=== PATIENT | male | born 1950 | race African-American/Black ===

== ENCOUNTER 2022-11-15 20:03 | Emergency (ER) | payer MEDICARE, OTHER ==
[~2022-11-15] VITALS: Ht 170.2 cm; Wt 85.7 kg
--- NOTE | 2022-11-15 21:13 | NUR ---
LUCERO Estrada FROM [facility] C/O AGRESSIVE TOWARDS OTHER PATIENTS "MORE ALTERED THAN USUAL" , PT TO BED 11, DENIES SOB/CP. SITTER AT BS, NOT IN ACUTE DISTRESS. PENDING ER PROVIDER CLARE
--- NOTE | 2022-11-15 21:47 | NUR ---
URINE SENT TO LAB
--- NOTE | 2022-11-15 21:48 | NUR ---
COVID SWAB SENT TO LAB
[2022-11-15 22:06] LABS: BASOPHILS % (AUTO) 0.4 % (0.0-2.0); EOSINOPHILS % (AUTO) 2.2 % (0.0-6.0); HEMATOCRIT 43 % (39-51); HEMOGLOBIN 13.9 g/dL (13.5-17.5); LYMPHOCYTES # (AUTO) 1.6 K/uL (0.8-4.8); LYMPHOCYTES % (AUTO) 20.7 % (20.0-44.0); MEAN CORPUSCULAR HGB CONC 32 g/dl (31.0-36.0); MEAN CORPUSCULAR VOLUME 86 fL (80-96); MONOCYTES # (AUTO) 0.4 K/uL (0.1-1.30); MONOCYTES % (AUTO) 5.1 % (2.0-12.0); NEUTROPHILS # (AUTO) 5.4 K/uL (1.8-8.9); NEUTROPHILS % (AUTO) 71.6 % (43.0-81.0); PLATELET COUNT (AUTO) 297 K/uL (150-450); RED BLOOD CELL COUNT(AUTO) 5.03 MIL/uL (4.5-6.0); WHITE BLOOD COUNT (AUTO) 7.6 K/uL (4.3-11.0)
[2022-11-15 22:18] LABS: ALANINE AMINOTRANSFERASE 18 U/L (12-78); ALBUMIN 4.4 g/dL (3.4-5.0); ALKALINE PHOSPHATASE 91 U/L (46-116); ASPARTATE AMINOTRANSFERASE 17 U/L (15-37); BILIRUBIN,DIRECT 0.2 mg/dL (0.0-0.2); BILIRUBIN,TOTAL 0.4 mg/dL (0.2-1.0); CALCIUM, SERUM 9.8 mg/dL (8.5-10.1); CARBON DIOXIDE 23 mmol/L (21-32); CHLORIDE 103 mmol/L (98-107); CREATININE 1.2 mg/dL (0.6-1.3); GLUCOSE 132 mg/dL (74-106); POTASSIUM 3.8 mmol/L (3.5-5.1); SODIUM SERUM 140 mmol/L (136-145); TOTAL PROTEIN, SERUM 8.7 g/dL (6.4-8.2); UREA NITROGEN, BLOOD 20 mg/dL (7-18)
[2022-11-15 22:19] LABS: ACETAMINOPHEN < 10 ug/ml (10-30); ALCOHOL, BLOOD < 3 mg/dL (0-0); BILIRUBIN,URINE NEGATIVE (NEGATIVE); COLOR,URINE YELLOW (YELLOW); LEUKOCYTE ESTERASE ,URINE NEGATIVE (NEGATIVE); NITRITE, URINE NEGATIVE (NEGATIVE); PROTEIN,URINE 2+ mg/dl (NEGATIVE); UGLUCOSE NEGATIVE (NEGATIVE)
[2022-11-15 23:22] LABS: BACTERIA,URINE Few /HPF (None Seen); RBC,URINE 0-2 /HPF (0-2); SQUAMOUS EPITHELIAL CELL,UR Few /HPF (None Seen); WBC,URINE NONE SEEN /HPF (0-3)
--- NOTE | 2022-11-16 05:54 | NUR ---
JACOBO [phone] [address]
--- NOTE | 2022-11-16 06:00 | NUR ---
REPORT GIVEN TO MAY AT [facility]
--- NOTE | 2022-11-16 06:03 | NUR ---
CALLED [facility] FOR TRANSPORTATION WILL BE HERE AFTER 8AM
--- NOTE | 2022-11-16 06:05 | NUR ---
[facility] CALLED TO REQUEST PT INFORMATION TO BE FAXED. CLOSED UNTIL 9AM, LEFT MESSAGE.
[2022-11-16 08:36] VITALS: BP 133/68
--- NOTE | 2022-11-16 08:37 | NUR ---
patient was pickup by ambulance going to [facility]
== END 2022-11-16 08:38 | disposition short-term general hospital (02) ==
LOC: ER 20:12
DX: R45.1 Restlessness and agitation (principal); I10 Essential (primary) hypertension; E11.9 Type 2 diabetes mellitus without complications; F03.90 Unspecified dementia, unspecified severity, without behavioral disturbance, psychotic disturbance, mood disturbance, and anxiety; Z20.822 Contact with and (suspected) exposure to COVID-19
CPT/HCPCS: 36415; 80048-TC; 80076-TC; 81001; 85025-TC; C9803; G0480